=== PATIENT | female | born 1960 | race Caucasian/White ===

== ENCOUNTER → 2023-09-03 07:30 | Outpatient (REF) | payer BC, SELFPAY | LOC: WDC 07:30 | PROVIDERS: ATTENDING PHYSICIAN Surgery; FAMILY PHYSICIAN Family Medicine | DX: R92.8 Other abnormal and inconclusive findings on diagnostic imaging of breast (principal) | CPT/HCPCS: 76642 ==

== ENCOUNTER → 2023-11-01 07:24 | Outpatient (REF) | payer BC, SELFPAY | LOC: RAD 07:24 | PROVIDERS: ATTENDING PHYSICIAN Nurse Practitioner Adult Health; FAMILY PHYSICIAN Family Medicine; REFERRING PHYSICIAN Obstetrics & Gynecology Gynecology | DX: N95.0 Postmenopausal bleeding (principal) | CPT/HCPCS: 76830; 76856 ==

== ENCOUNTER → 2024-02-28 07:50 | Outpatient (REF) | payer BC, SELFPAY | LOC: WDC 07:50 | PROVIDERS: ATTENDING PHYSICIAN Surgery; FAMILY PHYSICIAN Family Medicine | DX: R92.8 Other abnormal and inconclusive findings on diagnostic imaging of breast (principal) | CPT/HCPCS: 76642 ==

== ENCOUNTER → 2024-07-13 18:18 | Outpatient (REF) | payer BC, SELFPAY | LOC: WDC 18:18 | PROVIDERS: ATTENDING PHYSICIAN Obstetrics & Gynecology Gynecology; FAMILY PHYSICIAN Surgery | DX: Z12.31 Encounter for screening mammogram for malignant neoplasm of breast (principal); Z01.419 Encounter for gynecological examination (general) (routine) without abnormal findings | CPT/HCPCS: 77063; 77067 ==

== ENCOUNTER → 2024-09-01 07:47 | Outpatient (REF) | payer BC, SELFPAY | LOC: WDC 07:47 | PROVIDERS: ATTENDING PHYSICIAN Surgery | DX: R92.2 Inconclusive mammogram (principal) | CPT/HCPCS: 76641 ==

== ENCOUNTER → 2025-03-07 07:42 | Outpatient (REF) | payer BC, SELFPAY | LOC: WDC 07:42 | PROVIDERS: ATTENDING PHYSICIAN Surgery | DX: R92.8 Other abnormal and inconclusive findings on diagnostic imaging of breast (principal) | CPT/HCPCS: 76642 ==

== ENCOUNTER → 2025-07-17 17:21 | Outpatient (REF) | payer BC, SELFPAY | LOC: WDC 17:21 | PROVIDERS: ATTENDING PHYSICIAN Family Medicine | DX: Z12.31 Encounter for screening mammogram for malignant neoplasm of breast (principal); Z12.39 Encounter for other screening for malignant neoplasm of breast | CPT/HCPCS: 77063; 77067 ==